=== PATIENT | male | born 2000 ===

== ENCOUNTER 2025-08-18 14:45 | Emergency (ER) | payer OTHER, SELFPAY ==
[2025-08-18 15:38] VITALS: BP 133/82; PULSE 102; RESP 16; TEMP 37.5; O2SAT 98; BMI 28.6
--- NOTE | 2025-08-18 15:40 | ED.NAVMDI ---
HPI - Nausea/Vomiting/Diarrhea General Chief complaint: Nausea/Vomiting/Diarrhea Stated complaint: headache, diarrhea, vomiting Time Seen by Provider: 08/18/25 21:59 Source: patient Limitations: no limitations History of Present Illness ED Provider: Awa Browning PA-C HPI Narrative: 25-year-old male presents with viral syndrome x1 day. Associated headache, nausea vomiting diarrhea, generalized myalgias. The patient's son is sick with similar symptoms. Denies fever. No cough. No recent travel out of the country, use of antibiotics or hospitalization. Associated nausea: Yes Related Data Previous Rx's ?Medication ?Instructions ?Recorded ondansetron 4 mg disintegrating 4 mg PO Q8H PRN nausea and 08/18/25 tablet vomiting #10 tabs Allergies Allergy/AdvReac Type Severity Reaction Status Date / Time No Known Allergies Allergy Verified 08/18/25 15:43 Review of Systems Review of Systems: Yes all other systems are reviewed and are negative Constitutional: Constitutional: Denies fatigue, Denies fever(s) and Reports malaise Cardiovascular: Cardiovascular: Denies chest pain Respiratory: Respiratory: Denies cough Gastrointestinal: Gastrointestinal: Denies abdominal pain, Reports diarrhea, Reports nausea and Reports vomiting Musculoskeletal: Musculoskeletal: Reports myalgias Endocrine: Endocrine: Denies fatigue PMF Past Medical History Attestation statement: The following information was validated with the patient. Social History Social History Advance Directives: No Advance Directives Information Provided: No Do you have a plan to hurt others: No Plan Physical Exam Vital Signs: Vital Signs: Last Vital Signs Temp 99.5 F 08/18/25 15:38 Pulse 102 H 08/18/25 15:38 Resp 16 08/18/25 15:38 BP 133/82 08/18/25 15:38 Pulse Ox 98 08/18/25 15:38 O2 Del Method Room Air 08/18/25 15:38 BMI result Body Mass Index 28.6 Const: Other: Alert well-appearing Orientation/consciousness: patient oriented x3 Resp: Effort & Inspection: normal respiratory effort Cardio: Other: Normal peripheral perfusion Skin: Other: Warm dry no rash Neuro: General: patient oriented x3, gait normal, no focal motor deficits and CN's II-XI intact bilaterally Psych: Other: Cooperative Course Course Course Narrative: This is a RME preformed in triage by Dsetinee Schmidt PA-C. Date:08/18/2025, time 340 pm. Patient presents with headache, body aches, nausea vomiting (8 x since last night), (no blood in vomit) decreased appetite, no cough, sore throat, no nasal congestion. + diarrhea His child had same sxs. PE: dry oral mucosa, Work UP:?abd labs, sars/flu, zofran given Will defer full ROS and PE to treating provider. Patient will continued to be monitored in the interim. Medications Administered Discontinued Medications Generic Name Dose Route Start Last Admin Trade Name Igor PRN Reason Stop Dose Admin Ondansetron HCl 4 mg 08/18/25 15:43 08/18/25 15:45 Ondansetron Odt 4 Mg Tab.Rapdis TRANSLINGU 08/18/25 15:44 4 mg ONCE ONE Administration Medical Decision Making Medical Decision Making [facility] Narrative: 25-year-old male presents with viral syndrome x1 day. Associated headache, nausea vomiting diarrhea, generalized myalgias. The patient's son is sick with similar symptoms. Denies fever. No cough. No recent travel out of the country, use of antibiotics or hospitalization. No chronic issues History: Per patient I have considered the following differential diagnoses: Viral gastroenteritis, C diff, traveler's diarrhea, diverticulitis Plan: Given the constellation of symptoms, and his son is sick with the same symptoms, this is most certainly viral gastro. Screening labs including viral panel ordered from triage, no acute findings. The patient is not complaining of belly pain to suggest diverticulitis. He also has no known risk factors for C diff or traveler's diarrhea. I have independently reviewed the following tests: Labs: Slight leukocytosis with left shift, not anemic, no electrolyte abnormality, viral panel negative Differential Diagnosis Differential Diagnoses: The differential diagnosis associated with the presentation includes See [facility] Admission/Observation Consideration of admission/observation: Escalation of care including admission/observation considered Not applicable Lab Data [facility] Lab Attestation statement: I reviewed the patient's lab results. 08/18/25 15:57 08/18/25 15:57 Labs: Lab Results 08/18/25 Range/Units 15:57 WBC 12.9 H (4.8-10.8) X10*3/uL RBC 5.39 (4.60-5.80) X10*6/uL Hgb 16.0 (14.0-18.0) g/dl Hct 47.3 (42.0-52.0) % MCV 87.8 (80.0-98.0) fL MCH 29.7 (27.0-33.0) pg MCHC 33.8 (31.0-36.0) g/dl RDW 13.1 (11.0-16.0) % Plt Count 244 (160-400) X10*3/uL MPV 11.4 (9.4-12.4) fL Immature Gran % (Auto) 0.2 (0.0-0.4) % Neut % (Auto) 88.9 H (45-73) % Lymph % (Auto) 5.8 L (20-40) % [place] % (Auto) 3.7 (2-11) % Eos % (Auto) 1.1 (0-4) % Baso % (Auto) 0.3 (0-2) % Lymph # (Auto) 0.8 L (1.2-4.9) X10*3/uL [place] # (Auto) 0.5 (0.1-1.2) X10*3/uL Eos # (Auto) 0.1 (0.0-0.4) X10*3/uL Baso # (Auto) 0.0 (0.0-0.2) X10*3/uL Abs Immat Gran (auto) 0.03 (0.00-0.03) X10*3/uL Absolute Neuts (auto) 11.4 H (2.0-8.3) x10*3/uL Absolute Nucleated RBC 0.000 (0.0-0.012) X10*3/uL Nucleated RBC % (auto) 0.0 (0.0-0.2) /100WBC Sodium 139 (135-145) mmol/L Potassium 3.8 (3.3-5.1) mmol/L Chloride 107 (96-108) mmol/L Carbon Dioxide 23 (22-29) mmol/L Anion Gap 13 (12-20) BUN 15 (9-16) mg/dL Creatinine 0.66 (0.5-1.4) mg/dL Estim Creat Clear Calc 173.1 Estimated GFR > 60 Random Glucose 95 (60-115) mg/dL Calcium 9.6 (8.4-10.2) mg/dL Magnesium 2.0 (1.6-2.6) mg/dL Total Bilirubin 1.4 H (0.0-1.0) mg/dL AST 25 (5-37) U/L ALT 26 (0-40) U/L Alkaline Phosphatase 76 (39-117) U/L Total Protein 7.5 (6.5-8.0) g/dL Albumin 5.0 (3.5-5.0) g/dL Lipase 13 (8-78) U/L Influenza Type A (PCR) NEGATIVE (Negative) Influenza Type B (PCR) NEGATIVE (Negative) RSV RNA Qual (PCR) NEGATIVE (Negative) SARS-CoV-2 RNA (RT-PCR) NEGATIVE (Negative) Discharge Plan Discharge Clinical Impression: Gastroenteritis Patient Disposition: Home, Self-Care Instructions: Gastroenteritis (ED) Additional Instructions: You likely have viral gastroenteritis, given your son has a same symptoms. See home care instructions. This is viral, a viruses self-limiting, uses Zofran as needed for nausea. You can use [id number] ibuprofen and Tylenol if you develop fevers, and for body aches. Follow up with your primary care as needed. Prescriptions: New ondansetron 4 mg tablet,disintegrating 4 mg PO Q8H PRN (Reason: nausea and vomiting) Qty: 10 0RF Stand Alone Forms: Work/School Release Print Language: Chinese
[2025-08-18 16:02] LABS: MANUAL DIFF FLAG NO
[2025-08-18 16:05] LABS: Hematocrit 47.3 % (42.0-52.0); Hemoglobin 16.0 g/dl (14.0-18.0); Imm Gran Abs Auto 0.03 X10*3/uL (0.00-0.03); Imm Gran Pct Auto 0.2 % (0.0-0.4); Lymphocytes Absolute Auto 0.8 X10*3/uL (1.2-4.9); Mean Corpuscular HGB Conc 33.8 g/dl (31.0-36.0); Mean Corpuscular Hemoglobin 29.7 pg (27.0-33.0); Mean Corpuscular Volume 87.8 fL (80.0-98.0); NRBC Abs Auto 0.000 X10*3/uL (0.0-0.012); NRBC Pct Auto 0.0 /100WBC (0.0-0.2); Platelet Count 244 X10*3/uL (160-400); Red Blood Count 5.39 X10*6/uL (4.60-5.80); White Blood Count 12.9 X10*3/uL (4.8-10.8)
[2025-08-18 16:18] LABS: Alanine Aminotransferase 26 U/L (0-40); Albumin Level 5.0 g/dL (3.5-5.0); Alkaline Phosphatase 76 U/L (39-117); Anion Gap 13 (12-20); Aspartate Amino Transferase 25 U/L (5-37); Blood Urea Nitrogen 15 mg/dL (9-16); Calcium 9.6 mg/dL (8.4-10.2); Carbon Dioxide 23 mmol/L (22-29); Chloride 107 mmol/L (96-108); Creatinine Clr Calc Pharmacy 173.1; Estimated Glomerular Filt Rate > 60; Lipase 13 U/L (8-78); Magnesium 2.0 mg/dL (1.6-2.6); Potassium 3.8 mmol/L (3.3-5.1); Sodium 139 mmol/L (135-145); Total Protein 7.5 g/dL (6.5-8.0)
[2025-08-18 16:46] LABS: Resp Syncy Virus RNA Qual PCR NEGATIVE (Negative); SARS COV2 PCR INHOUSE NEGATIVE (Negative)
[2025-08-18 22:58] VITALS: BP 133/82; PULSE 102; RESP 16; TEMP 37.5; O2SAT 98
== END 2025-08-18 22:58 | disposition home or self-care (01) ==
PROVIDERS: Physician Assistant Medical; Emergency Provider Emergency Medicine
DX: K52.9 Noninfective gastroenteritis and colitis, unspecified (principal); R51.9 Headache, unspecified; R11.2 Nausea with vomiting, unspecified; Z03.818 Encounter for observation for suspected exposure to other biological agents ruled out
CPT/HCPCS: 80053; 83690; 83735; 85025; 87637; 99282; 99283